=== PATIENT | male | born 1990 | race Caucasian/White ===

== ENCOUNTER 2017-06-16 23:24 | Inpatient (IN) | payer SELFPAY ==
[~2017-06-16] VITALS: Ht 172.7 cm; Wt 71.2 kg
[2017-06-16] MEDS ORDERED: MORPHINE SULFATE 4 MG/ML, 1ML ONE (23:47)
[2017-06-16] MEDS ORDERED: ONDANSETRON 2MG/ML, 2ML ONE (23:47)
[2017-06-17] MEDS ORDERED: SODIUM CHLORIDE FLUSH 10ML SYR IVF ONE
[2017-06-17] MEDS ORDERED: ONDANSETRON 2MG/ML, 2ML IVPush ONE
[2017-06-17] MEDS ORDERED: SODIUM CHLORIDE 0.9% 1,000ML IVBOLUS ONE
[2017-06-17] MEDS: MORPHINE SULFATE 4 MG/ML, 1ML IVPush PRN ×2 (00:05→01:10)
[2017-06-17 00:06] LABS: HEMOGLOBIN 15.2 g/dL (13.7-18.0); WHITE BLOOD COUNT 15.2 x10^3/uL (3.4-10)
[2017-06-17 00:15] LABS: ASPARTATE AMINO TRANSFERASE 24 U/L (15-37); BLOOD UREA NITROGEN 19 mg/dL (7-18)
[2017-06-17] MEDS ORDERED: MORPHINE SULFATE 4 MG/ML, 1ML ONE (00:46)
[2017-06-17] MEDS ORDERED: OMNIPAQUE 350 MG/ML, 100ML BOTTLE ONE (01:16)
[2017-06-17] MEDS ORDERED: HYDROmorphone 1 MG/ML, 1ML ONE (02:41)
[2017-06-17] MEDS ORDERED: HYDROmorphone 1 MG/ML, 1ML IV ONE (03:00)
[2017-06-17] MEDS ORDERED: MELA5CAP PO (04:21)
[2017-06-17] MEDS ORDERED: PHENOL THROAT SPRAY BOTTLE MM PRN (05:00)
[2017-06-17] MEDS ORDERED: ONDANSETRON 2MG/ML, 2ML IVPush PRN (05:00)
[2017-06-17 05:01] VITALS: BP 110/64
[2017-06-17] MEDS: LACTATED RINGERS 1,000 ML IV SCH ×3 (05:20→18:58)
[2017-06-17] MEDS: HYDROmorphone 2 MG/ML, 1ML IVPush PRN ×3 (05:20→14:52)
[2017-06-17 06:43] VITALS: BP 102/62
[2017-06-17 13:07] VITALS: BP 109/61
[2017-06-17 17:58] LABS: BLOOD UREA NITROGEN 8 mg/dL (7-18)
[2017-06-17 19:09] VITALS: BP 112/56
== END 2017-06-17 22:05 | disposition left against medical advice (07) | DRG 390 ==
LOC: ED 23:59 → EDIP 06-17 02:45 → 4NOR 06-17 03:43
PROVIDERS: ADMIT Hospitalist; ATTEND Hospitalist
DX: K56.51 Intestinal adhesions [bands], with partial obstruction (principal); D72.829 Elevated white blood cell count, unspecified; E87.6 Hypokalemia
CPT/HCPCS: 36415; 74020; 74177; 80048; 80053; 81001; 83690; 83735; 84100; 85025; 96361; 96374; 96375; 96376; J1170; J2405; Q9967; J7030; J7120